=== PATIENT | female | born 1970 | race Two or more races ===

== ENCOUNTER 2018-09-25 22:19 | Emergency (ER) | payer MEDICAID ==
[~2018-09-25] VITALS: Ht 144.8 cm; Wt 72.6 kg
[~2018-09-25 22:19] MED LIST: GLIP5TAB3 PO; LISI5TAB45 PO; METF500T PO
--- NOTE | 2018-09-25 22:43 | NUR ---
PT BIBSELF C/O L UPPER EXTREMITY PAIN. PT HAS HAD CHRONIC PAIN SINCE 2017 S/P INJURY, AND HAD SX X2 MONTHS AGO. PT AAOX4. RESPIRATIONS EVEN AND UNLABORED. SKIN WARM AND INTACT. NO ACUTE DISTRESS NOTED AT THIS TIME. WILL CONTINUE TO MONITOR
[2018-09-25] MEDS ORDERED: ACETAMINOPHEN 325 MG TABLET ONE (23:43)
[2018-09-25] MEDS: ACETAMINOPHEN 325 MG TABLET PO ONE (23:51)
--- NOTE | 2018-09-26 00:20 | NUR ---
RADIOLOGY AT BEDSIDE FOR XRAYS
[2018-09-26 01:13] LABS: APPEARANCE,URINE Clear (CLEAR); BILIRUBIN,URINE Negative (NEGATIVE); BLOOD, URINE Negative Ery/uL (NEGATIVE); COLOR,URINE Yellow (YELLOW); KETONES,URINE Negative (NEGATIVE); LEUKOCYTE ESTERASE ,URINE Trace (NEGATIVE); NITRITE, URINE Negative (NEGATIVE); PROTEIN,URINE Negative (NEGATIVE); UGLUCOSE Negative (NEGATIVE); UROBILINOGEN,URINE 0.2 EU/dL (0.2)
[2018-09-26 02:00] LABS: BACTERIA,URINE Few /HPF (None Seen); RBC,URINE 0-2 /HPF (0-2); SQUAMOUS EPITHELIAL CELL,UR Few /HPF (None Seen)
--- NOTE | 2018-09-26 02:27 | NUR ---
Patient discharged to home in stable condition. Written and verbal after care instructions given. Patient verbalizes understanding of instruction. Pt ambulatory with a steady gait
[2018-09-26 02:28] VITALS: BP 146/87
== END 2018-09-26 02:29 | disposition home or self-care (01) ==
LOC: ER 22:24
DX: M25.521 Pain in right elbow (principal); M25.561 Pain in right knee; M25.571 Pain in right ankle and joints of right foot; M25.551 Pain in right hip; E11.9 Type 2 diabetes mellitus without complications; I10 Essential (primary) hypertension; F03.90 Unspecified dementia, unspecified severity, without behavioral disturbance, psychotic disturbance, mood disturbance, and anxiety
CPT/HCPCS: 71045-TC; 73070-TC; 73502; 73560-TC; 73600-TC; 81000-TC

== ENCOUNTER 2019-05-13 09:10 | Emergency (ER) | payer MEDICAID ==
[~2019-05-13] VITALS: Ht 154.9 cm; Wt 75.3 kg
[~2019-05-13 09:10] MED LIST changes: +LISI-608 PO; -LISI5TAB45 PO
--- NOTE | 2019-05-13 09:20 | NUR ---
PT CAME INTO THE ED C/O TOE INFECTION. PT AAOX4, VSS, BREATHING EVEN AND UNLABORED ON ROOM AIR W/ NAD. PT CONNECTED TO THE MONITOR AND POX
--- NOTE | 2019-05-13 09:30 | NUR ---
soaked patient r foot to warm water with soap.
--- NOTE | 2019-05-13 09:58 | NUR ---
Patient discharged to home in stable condition. Written and verbal after care instructions given. Patient verbalizes understanding of instruction.
[2019-05-13 10:05] VITALS: BP 118/76
== END 2019-05-13 10:06 | disposition home or self-care (01) ==
LOC: ER 09:16
DX: L03.031 Cellulitis of right toe (principal); I10 Essential (primary) hypertension; E11.9 Type 2 diabetes mellitus without complications; F03.90 Unspecified dementia, unspecified severity, without behavioral disturbance, psychotic disturbance, mood disturbance, and anxiety; Z79.899 Other long term (current) drug therapy

== ENCOUNTER 2019-11-06 08:08 | Emergency (ER) | payer MEDICAID ==
[~2019-11-06] VITALS: Ht 144.8 cm; Wt 74.8 kg
--- NOTE | 2019-11-06 08:20 | NUR ---
bilateral eye pain since last night,denies any trauma/foreign body. Patient a/ox4, breathing even and unlabored, no sob noted, needs attended, kept comfortable.
[2019-11-06] MEDS ORDERED: FLUORESCEIN SODIUM OPHTH 1 EA STRIP ONE (08:24)
--- NOTE | 2019-11-06 08:54 | NUR ---
AT BEDSIDE FOR EVAL.
--- NOTE | 2019-11-06 09:32 | NUR ---
Patient discharged to home in stable condition. Written and verbal after care instructions given. Patient verbalizes understanding of instruction.
[2019-11-06 09:33] VITALS: BP 145/89
== END 2019-11-06 09:33 | disposition home or self-care (01) ==
LOC: ER 08:13
DX: H10.13 Acute atopic conjunctivitis, bilateral (principal); E11.9 Type 2 diabetes mellitus without complications; I10 Essential (primary) hypertension; F03.90 Unspecified dementia, unspecified severity, without behavioral disturbance, psychotic disturbance, mood disturbance, and anxiety; Z98.890 Other specified postprocedural states; Z79.899 Other long term (current) drug therapy

== ENCOUNTER 2019-11-09 16:24 | Emergency (ER) | payer MEDICAID ==
[~2019-11-09] VITALS: Ht 144.8 cm; Wt 74.8 kg
[2019-11-09] MEDS ORDERED: LORAZEPAM INJ 2 MG/ML VIAL IV ONE (17:00)
[2019-11-09] MEDS ORDERED: LORAZEPAM INJ 2 MG/ML VIAL ONE (17:14)
[2019-11-09 17:15] LABS: BASOPHILS % (AUTO) 0.2 % (0.0-2.0); HEMATOCRIT 39 % (33-45); HEMOGLOBIN 12.7 g/dL (11.5-14.8); LYMPHOCYTES # (AUTO) 0.6 /CMM (0.8-4.8); LYMPHOCYTES % (AUTO) 7.3 % (20.0-44.0); MEAN CORPUSCULAR HGB CONC 33 g/dl (31.0-36.0); MEAN CORPUSCULAR VOLUME 83 fL (82-100); MONOCYTES # (AUTO) 0.5 /CMM (0.1-1.30); NEUTROPHILS # (AUTO) 6.6 /CMM (1.8-8.9); NEUTROPHILS % (AUTO) 85.5 % (43.0-81.0); PLATELET COUNT (AUTO) 206 /CMM (150-450); RED BLOOD CELL COUNT(AUTO) 4.69 MIL/uL (4.0-5.2); WHITE BLOOD COUNT (AUTO) 7.7 K/uL (4.3-11.0)
--- NOTE | 2019-11-09 17:15 | NUR ---
DIFFICULTY BREATHING SINCE YESTERDAY, TAKING PREDNISONE X 3 DAYS. PT AAOX4, VSS. PLACED ON MANAGING MANAGER, NSR. DENIES DIZZINESS, N/V/D, ABD PAIN, FEVER @ THIS TIME. PT SEEN & EVAL'D BY DR. HOOD. WILL CONT TO MONITOR.
[2019-11-09 17:36] LABS: B-TYPE NATRIURETIC PEPTIDE 68 PG/ML (0-125); CALCIUM, SERUM 8.8 mg/dL (8.5-10.1); CARBON DIOXIDE 25 mmol/L (21-32); CHLORIDE 102 mmol/L (98-107); POTASSIUM 3.7 mmol/L (3.5-5.1); SODIUM SERUM 138 mmol/L (136-145); UREA NITROGEN, BLOOD 16 mg/dL (7-18)
[2019-11-09 17:37] LABS: GLUCOSE 427 mg/dL (74-106)
--- NOTE | 2019-11-09 18:51 | NUR ---
IV removed. Catheter intact and site benign. Pressure and 4x4 applied to site. No bleeding noted.Patient discharged to home in stable condition. Written and verbal after care instructions given. Patient verbalizes understanding of instruction.
[2019-11-09 18:52] VITALS: BP 134/79
== END 2019-11-09 18:52 | disposition home or self-care (01) ==
LOC: ER 16:29
DX: R06.02 Shortness of breath (principal); E11.65 Type 2 diabetes mellitus with hyperglycemia; I10 Essential (primary) hypertension; F03.90 Unspecified dementia, unspecified severity, without behavioral disturbance, psychotic disturbance, mood disturbance, and anxiety; Z20.828 Contact with and (suspected) exposure to other viral communicable diseases; Z98.890 Other specified postprocedural states; Z79.899 Other long term (current) drug therapy
CPT/HCPCS: 36415; 71045; 80048; 83880; 84484; 85025; 93005; 96374; 99285; J2060

== ENCOUNTER 2021-05-19 07:06 | Emergency (ER) | payer MEDICAID ==
[~2021-05-19] VITALS: Ht 144.8 cm; Wt 74.8 kg
[~2021-05-19 07:06] MED LIST changes: -LISI-608 PO; +LISI5TAB24 PO
[2021-05-19] MEDS ORDERED: HYDR-4275 PO (09:07)
[2021-05-19] MEDS ORDERED: IBUP-1957 PO (09:07)
[2021-05-19 09:49] VITALS: BP 129/84
--- NOTE | 2021-05-19 09:49 | NUR ---
Patient discharged to home in stable condition. Written and verbal after care instructions given. Patient verbalizes understanding of instruction.
== END 2021-05-19 09:50 | disposition home or self-care (01) ==
LOC: ER 07:24
DX: M25.571 Pain in right ankle and joints of right foot (principal); I10 Essential (primary) hypertension; E11.9 Type 2 diabetes mellitus without complications; Z98.890 Other specified postprocedural states; Z60.2 Problems related to living alone; Z79.84 Long term (current) use of oral hypoglycemic drugs; Z79.899 Other long term (current) drug therapy
CPT/HCPCS: 36415; 73610-TC; 84550-TC

== ENCOUNTER 2024-04-14 22:15 | Emergency (ER) | payer MEDICAID ==
[~2024-04-14] VITALS: Ht 144.8 cm; Wt 68.5 kg
[~2024-04-14 22:15] MED LIST changes: +HYDR-4275 PO; +IBUP-1957 PO
[2024-04-15] MEDS ORDERED: AZIT250T PO (00:16)
[2024-04-15] MEDS ORDERED: BENZ-13 PO (00:16)
[2024-04-15 00:26] VITALS: BP 139/85; TEMP 98.2; O2SAT 97
== END 2024-04-15 00:27 | disposition home or self-care (01) ==
LOC: ER 22:19
DX: J40 Bronchitis, not specified as acute or chronic (principal); E11.9 Type 2 diabetes mellitus without complications; I10 Essential (primary) hypertension; Z79.1 Long term (current) use of non-steroidal anti-inflammatories (NSAID); Z79.84 Long term (current) use of oral hypoglycemic drugs; Z79.899 Other long term (current) drug therapy; Z60.2 Problems related to living alone; Z20.822 Contact with and (suspected) exposure to COVID-19
CPT/HCPCS: 71045-TC; 86403-TC; 87070-TC